=== PATIENT | male | born 1940 | race Caucasian/White ===

== ENCOUNTER 2017-01-13 12:05 | Emergency (ER) | payer MEDICARE, OTHER | END 2017-01-13 14:56 | disposition home or self-care (01) | LOC: D.ER 12:05 | DX: S22.32XA Fracture of one rib, left side, initial encounter for closed fracture (principal); V89.2XXA Person injured in unspecified motor-vehicle accident, traffic, initial encounter; Y93.89 Activity, other specified; Y92.410 Unspecified street and highway as the place of occurrence of the external cause; R07.81 Pleurodynia ==

== ENCOUNTER 2018-05-25 09:22 | Inpatient (IN) | payer MEDICARE, OTHER ==
[~2018-05-25] VITALS: Ht 177.8 cm; Wt 106.6 kg
[2018-05-25] VITALS (8 sets, daily range): BP systolic 103–147; BP diastolic 40–66
[2018-05-25] MEDS ORDERED: CENTRUM MEN'S1 EACH PO (09:35)
[2018-05-25] MEDS ORDERED: CRESTOR5 MG PO (09:35)
[2018-05-25] MEDS ORDERED: FARXIGA5 MG PO (09:36)
[2018-05-25] MEDS ORDERED: LISINOPRIL2.5 MG PO (09:36)
[2018-05-25] MEDS ORDERED: LASIX20 MG PO (09:36)
[2018-05-25] MEDS ORDERED: FLOMAX0.4 MG PO (09:37)
[2018-05-25] MEDS ORDERED: METOPROLOL TART25 MG PO (09:37)
[2018-05-25] MEDS ORDERED: ESTER-C 500 MG1 TAB PO (09:38)
[2018-05-25 10:19] LABS: BASOPHILS 0.1 % (0-2); EOSINOPHILS 0.2 % (0-7); HEMOGLOBIN 14.8 g/dL (13.5-17.5); IMMATURE GRANULOCYTES 0.3 % (0-5); LYMPHOCYTES 2.5 % (15-50); MCHC 35.2 g/dL (31.0-37.0); MCV 90.9 fL (80.0-100.0); MEAN PLATELET VOLUME 10.7 fL (7.4-10.4); MONOCYTES 3.1 % (2-11); NEUTROPHILS 93.8 % (40-80); PLATELET COUNT 138 10x3/uL (130-400); RBC 4.62 10x6/uL (4.20-6.10); WBC 17.6 10x3/uL (4.8-10.8)
[2018-05-25 10:31] LABS: ALBUMIN 3.7 g/dL (3.4-5.0); ALKALINE PHOSPHATASE 70 U/L (46-116); ALT (SGPT) 26 U/L (10-68); BILIRUBIN - TOTAL 0.66 mg/dL (0.2-1.3); CALC OSMOLALITY 284 mosm/kg (275-300); CALCIUM 8.9 mg/dL (8.5-10.1); CARBON DIOXIDE 19.2 mmol/L (21.0-32.0); CHLORIDE - SERUM 105 mmol/L (98-107); CREATININE - SERUM 1.3 mg/dL (0.6-1.3); GLUCOSE 203 mg/dL (74-106); POTASSIUM - SERUM 3.8 mmol/L (3.5-5.1); PROTEIN - SERUM 7.1 g/dL (6.4-8.2); SODIUM 137 mmol/L (136-145); UREA NITROGEN 27 mg/dL (7-18); eGFR NON AFRICAN AMERICAN 56 mL/min (90-120)
[2018-05-25 10:42] LABS: APPEARANCE CLEAR (CLEAR); BACTERIA FEW /hpf (NONE SEEN); BILIRUBIN NEGATIVE (NEGATIVE); COLOR STRAW (YELLOW); EPITHELIAL CELLS RARE /hpf (0-5); GLUCOSE 1000 mg/dL (NEGATIVE); KETONE NEGATIVE (NEGATIVE); MUCUS <1+ /lpf (NONE SEEN); NITRITE NEGATIVE (NEGATIVE); PROTEIN TRACE mg/dL (NEGATIVE); RED CELLS - URINE OCC /hpf (0-5); SPECIFIC GRAVITY 1.015 (1.005-1.020); UROBILINOGEN NORMAL (NORMAL)
[2018-05-25 10:43] LABS: AMYLASE - SERUM 32 U/L (25-115); CKMB 1.6 U/L (0.0-3.6); CREATINE KINASE 109 UL (21-232); LIPASE 132 U/L (73-393); TROPONIN-I < 0.017 ng/mL (0.000-0.060)
[2018-05-26] VITALS (7 sets, daily range): BP systolic 98–154; BP diastolic 52–71; Ht 177.8 cm; Wt 106.6 kg
[2018-05-26 06:39] LABS: BASOPHILS 0.1 % (0-2); EOSINOPHILS 0 % (0-7); HEMATOCRIT 41.6 % (42.0-54.0); HEMOGLOBIN 14.4 g/dL (13.5-17.5); IMMATURE GRANULOCYTES 0.2 % (0-5); LYMPHOCYTES 4.1 % (15-50); MCH 31.4 pg (26.0-34.0); MCHC 34.6 g/dL (31.0-37.0); MCV 90.8 fL (80.0-100.0); MEAN PLATELET VOLUME 10.7 fL (7.4-10.4); MONOCYTES 5.1 % (2-11); NEUTROPHILS 90.5 % (40-80); PLATELET COUNT 130 10x3/uL (130-400); RBC 4.58 10x6/uL (4.20-6.10); RDW 14.4 % (11.5-14.5); WBC 16.6 10x3/uL (4.8-10.8)
[2018-05-26 07:05] LABS: INR 1.2 (0.85-1.17); PROTIME 14.8 SECONDS (11.6-15.0)
[2018-05-26 07:31] LABS: BILIRUBIN - TOTAL 0.56 mg/dL (0.2-1.3); CALCIUM 8.6 mg/dL (8.5-10.1); CHOL - HDL RATIO 3.6 ratio (2.3-4.9); CREATININE - SERUM 1.3 mg/dL (0.6-1.3); LDL-HDL RATIO 1.2 ratio (1.5-3.5); PROTEIN - SERUM 6.5 g/dL (6.4-8.2)
[2018-05-26 07:33] LABS: ANION GAP 14.3 mmol/L (8-16); CARBON DIOXIDE 24.7 mmol/L (21.0-32.0)
[2018-05-27 04:42] VITALS: BP 147/70
[2018-05-27 04:49] LABS: BASOPHILS 0.1 % (0-2); EOSINOPHILS 1.8 % (0-7); HEMATOCRIT 41.7 % (42.0-54.0); HEMOGLOBIN 14.3 g/dL (13.5-17.5); IMMATURE GRANULOCYTES 0.2 % (0-5); LYMPHOCYTES 8.4 % (15-50); MCH 31.8 pg (26.0-34.0); MCHC 34.3 g/dL (31.0-37.0); MEAN PLATELET VOLUME 10.7 fL (7.4-10.4); NEUTROPHILS 82.5 % (40-80); PLATELET COUNT 122 10x3/uL (130-400); RBC 4.49 10x6/uL (4.20-6.10); RDW 14.6 % (11.5-14.5); WBC 10.7 10x3/uL (4.8-10.8)
[2018-05-27 04:50] LABS: MCV 92.9 fL (80.0-100.0)
[2018-05-27 05:28] LABS: ALBUMIN 2.6 g/dL (3.4-5.0); BILIRUBIN - TOTAL 0.25 mg/dL (0.2-1.3); CREATININE - SERUM 1.1 mg/dL (0.6-1.3); POTASSIUM - SERUM 3.8 mmol/L (3.5-5.1); PROTEIN - SERUM 5.1 g/dL (6.4-8.2)
[2018-05-27 05:31] LABS: ANION GAP 22.6 mmol/L (8-16); CARBON DIOXIDE 15.2 mmol/L (21.0-32.0)
[2018-05-27] MEDS ORDERED: FLORAJEN3 CAPS460 MG PO (06:57)
[2018-05-27] MEDS ORDERED: PEPCID20 MG PO (06:58)
[2018-05-27] MEDS ORDERED: FLAGYL500 MG PO (06:59)
[2018-05-27] MEDS ORDERED: LEVAQUIN750 MG PO (06:59)
[2018-05-27 07:12] VITALS: BP 162/74
== END 2018-05-27 09:50 | disposition home or self-care (01) | DRG 392 ==
LOC: D.ER 09:22 → D.EDHOLD 12:54 → D.M3 12:54
PROVIDERS: Family Medicine; Internal Medicine Gastroenterology
DX: A09 Infectious gastroenteritis and colitis, unspecified (principal); K80.20 Calculus of gallbladder without cholecystitis without obstruction; I10 Essential (primary) hypertension; E11.9 Type 2 diabetes mellitus without complications

== ENCOUNTER → 2018-05-28 15:06 | Outpatient (CLI) | payer MEDICARE, OTHER ==
[2018-05-26 07:31] VITALS: BMI 33.7
[~2018-05-28 15:06] MED LIST: CENTRUM MEN'S1 EACH PO; CRESTOR5 MG PO; ESTER-C 500 MG1 TAB PO; FARXIGA5 MG PO; FLAGYL500 MG PO; FLOMAX0.4 MG PO; FLORAJEN3 CAPS460 MG PO; LASIX20 MG PO; LEVAQUIN750 MG PO; LISINOPRIL2.5 MG PO; METOPROLOL TART25 MG PO; PEPCID20 MG PO
== END | disposition home or self-care (01) ==
LOC: D.US 15:06
DX: M79.661 Pain in right lower leg (principal)

== ENCOUNTER → 2018-06-22 12:43 | Outpatient (CLI) | payer MEDICARE, OTHER ==
[2018-05-26 07:31] VITALS: BMI 33.7
== END | disposition home or self-care (01) ==
LOC: D.MRI 12:30
DX: L03.031 Cellulitis of right toe (principal)

== ENCOUNTER → 2019-06-13 12:19 | Outpatient (CLI) | payer MEDICARE, OTHER ==
[2018-05-26 07:31] VITALS: BMI 33.7
[2019-06-21 15:09] LABS: OVA + PARASITE EXAM Final report (())
== END | disposition home or self-care (01) ==
LOC: D.LAB 09:12
PROVIDERS: ATTEND Family Medicine
DX: R19.7 Diarrhea, unspecified (principal)

== ENCOUNTER → 2019-06-17 08:50 | Outpatient (CLI) | payer MEDICARE, OTHER ==
[2018-05-26 07:31] VITALS: BMI 33.7
== END | disposition home or self-care (01) ==
LOC: D.CT 08:50
PROVIDERS: ATTEND Family Medicine
DX: K52.3 Indeterminate colitis (principal)

== ENCOUNTER → 2019-06-29 18:59 | Outpatient (CLI) | payer MEDICARE, OTHER ==
[2018-05-26 07:31] VITALS: BMI 33.7
== END | disposition home or self-care (01) ==
LOC: D.LABREF 18:59
PROVIDERS: ATTEND Surgery
DX: R19.7 Diarrhea, unspecified (principal)

== ENCOUNTER → 2019-07-05 15:06 | Outpatient (CLI) | payer MEDICARE, OTHER ==
[2018-05-26 07:31] VITALS: BMI 33.7
[2019-07-05 16:26] LABS: BASOPHILS 0.3 % (0-2); EOSINOPHILS 1.4 % (0-7); HEMATOCRIT 44.5 % (42.0-54.0); IMMATURE GRANULOCYTES 0.5 % (0-5); LYMPHOCYTES 18.4 % (15-50); MCH 31.6 pg (26.0-34.0); MCV 87.8 fL (80.0-100.0); MEAN PLATELET VOLUME 10.9 fL (7.4-10.4); MONOCYTES 9.4 % (2-11); RBC 5.07 10x6/uL (4.20-6.10); RDW 13.8 % (11.5-14.5); WBC 14.5 10x3/uL (4.8-10.8)
[2019-07-05 16:28] LABS: PLATELET COUNT 249 10x3/uL (130-400)
[2019-07-05 16:47] LABS: ALKALINE PHOSPHATASE 67 U/L (46-116); BILIRUBIN - TOTAL 0.44 mg/dL (0.2-1.3); CARBON DIOXIDE 24.8 mmol/L (21.0-32.0); CHLORIDE - SERUM 101 mmol/L (98-107); POTASSIUM - SERUM 4.5 mmol/L (3.5-5.1); PROTEIN - SERUM 6.6 g/dL (6.4-8.2); SODIUM 137 mmol/L (136-145)
[2019-07-05 16:52] LABS: ALT (SGPT) 3 U/L (10-68)
== END | disposition home or self-care (01) ==
LOC: D.LAB 15:06
PROVIDERS: ATTEND Internal Medicine Gastroenterology
DX: A04.72 Enterocolitis due to Clostridium difficile, not specified as recurrent (principal); R63.4 Abnormal weight loss

== ENCOUNTER → 2019-08-15 12:10 | Outpatient (CLI) | payer MEDICARE, OTHER ==
[2018-05-26 07:31] VITALS: BMI 33.7
== END | disposition home or self-care (01) ==
LOC: D.LAB 12:10
PROVIDERS: ATTEND Family Medicine
DX: R19.7 Diarrhea, unspecified (principal)

== ENCOUNTER → 2019-08-23 09:18 | Outpatient (CLI) | payer MEDICARE, OTHER ==
[2018-05-26 07:31] VITALS: BMI 33.7
== END | disposition home or self-care (01) ==
LOC: D.HCCECHO 09:18
PROVIDERS: ATTEND Internal Medicine Cardiovascular Disease
DX: I25.10 Atherosclerotic heart disease of native coronary artery without angina pectoris (principal)

== ENCOUNTER → 2019-12-08 09:53 | Outpatient (CLI) | payer MEDICARE, OTHER ==
[2018-05-26 07:31] VITALS: BMI 33.7
[2019-12-08 10:56] LABS: ALBUMIN 4.1 g/dL (3.4-5.0); BILIRUBIN - DIRECT 0.11 mg/dL (0.00-0.30); BILIRUBIN - INDIRECT 0.29 mg/dL (0.00-1.00); BILIRUBIN - TOTAL 0.4 mg/dL (0.2-1.3); PROTEIN - SERUM 8.3 g/dL (6.4-8.2)
== END | disposition home or self-care (01) ==
LOC: D.LAB 09:45 → D.US 10:00
PROVIDERS: ATTEND Internal Medicine Gastroenterology
DX: K76.0 Fatty (change of) liver, not elsewhere classified (principal)

== ENCOUNTER 2020-03-28 21:48 | Emergency (ER) | payer MEDICARE, OTHER ==
[~2020-03-28] VITALS: Ht 177.8 cm; Wt 99.1 kg
[2020-03-28 22:24] VITALS: Ht 177.8 cm; Wt 99.1 kg
[2020-03-28] MEDS ORDERED: SYNTHROID25 MCG PO (22:30)
[2020-03-28] MEDS ORDERED: TRESIBA FL100 UNIT/1 SC ×2 (22:31→22:32)
[2020-03-28] MEDS ORDERED: OZEMPIC (22:31)
[2020-03-28 23:00] LABS: HEMATOCRIT 42.9 % (42.0-54.0); HEMOGLOBIN 14.7 g/dL (13.5-17.5); LYMPHOCYTES 11.6 % (15-50); MCH 31.3 pg (26.0-34.0); MCHC 34.3 g/dL (31.0-37.0); MCV 91.3 fL (80.0-100.0); MEAN PLATELET VOLUME 10.1 fL (7.4-10.4); NEUTROPHILS 81.8 % (40-80); PLATELET COUNT 243 10x3/uL (130-400); RDW 13.7 % (11.5-14.5); WBC 15.1 10x3/uL (4.8-10.8)
[2020-03-28 23:08] LABS: ANION GAP 17.8 mmol/L (8-16); APTT 31.5 SECONDS (22.8-39.4); CALCIUM 9.3 mg/dL (8.5-10.1); CARBON DIOXIDE 21.5 mmol/L (21.0-32.0); CREATININE - SERUM 1.7 mg/dL (0.6-1.3); INR 1.13 (0.85-1.17); POTASSIUM - SERUM 4.3 mmol/L (3.5-5.1); PROTIME 14.4 SECONDS (11.6-15.0)
[2020-03-28 23:14] LABS: ALBUMIN 3.8 g/dL (3.4-5.0); BILIRUBIN - TOTAL 0.66 mg/dL (0.2-1.3); PROTEIN - SERUM 8.3 g/dL (6.4-8.2)
[2020-03-29] MEDS ORDERED: PROTONIX40 MG PO (00:04)
[2020-03-29 00:12] LABS: BILIRUBIN NEGATIVE (NEGATIVE); GLUCOSE 500 mg/dL (NEGATIVE); KETONE SMALL mg/dL (NEGATIVE); NITRITE NEGATIVE (NEGATIVE); UROBILINOGEN NORMAL (NORMAL)
[2020-03-29 01:25] VITALS: BP 127/78
== END 2020-03-29 01:25 | disposition home or self-care (01) ==
LOC: D.ER 21:48
PROVIDERS: Family Medicine
DX: K92.1 Melena (principal); E86.0 Dehydration; E11.9 Type 2 diabetes mellitus without complications; I11.0 Hypertensive heart disease with heart failure; I50.9 Heart failure, unspecified; Z95.1 Presence of aortocoronary bypass graft; Z79.4 Long term (current) use of insulin

== ENCOUNTER → 2020-04-02 15:58 | Outpatient (CLI) | payer MEDICARE, OTHER ==
[2020-03-28 22:24] VITALS: BMI 31.3
[~2020-04-02 15:58] MED LIST changes: +OZEMPIC; +PROTONIX40 MG PO; +SYNTHROID25 MCG PO; +TRESIBA FL100 UNIT/1 SC
== END | disposition home or self-care (01) ==
LOC: D.LAB 15:58
PROVIDERS: ATTEND Family Medicine
DX: R19.7 Diarrhea, unspecified (principal)

== ENCOUNTER → 2020-06-27 09:14 | Outpatient (CLI) | payer MEDICARE, OTHER ==
[2020-03-28 22:24] VITALS: BMI 31.3
[2020-06-27 10:34] LABS: ALBUMIN 3.6 g/dL (3.4-5.0); BILIRUBIN - DIRECT 0.05 mg/dL (0.00-0.30); BILIRUBIN - INDIRECT 0.43 mg/dL (0.00-1.00); BILIRUBIN - TOTAL 0.48 mg/dL (0.2-1.3); PROTEIN - SERUM 7.8 g/dL (6.4-8.2)
== END | disposition home or self-care (01) ==
LOC: D.US 09:14
PROVIDERS: ATTEND Internal Medicine Gastroenterology
DX: K76.0 Fatty (change of) liver, not elsewhere classified (principal)

== ENCOUNTER → 2020-12-25 08:59 | Outpatient (CLI) | payer MEDICARE, OTHER ==
[2020-03-28 22:24] VITALS: BMI 31.3
[2020-12-25 09:29] LABS: ALBUMIN 3.7 g/dL (3.4-5.0); BILIRUBIN - DIRECT 0.06 mg/dL (0.00-0.30); BILIRUBIN - INDIRECT 0.21 mg/dL (0.00-1.00); BILIRUBIN - TOTAL 0.27 mg/dL (0.2-1.3); PROTEIN - SERUM 7.4 g/dL (6.4-8.2)
== END | disposition home or self-care (01) ==
LOC: D.US 08:59
PROVIDERS: ATTEND Internal Medicine Gastroenterology
DX: K76.0 Fatty (change of) liver, not elsewhere classified (principal)

== ENCOUNTER → 2021-01-09 13:00 | Outpatient (CLI) | payer MEDICARE, OTHER ==
[2020-03-28 22:24] VITALS: BMI 31.3
== END | disposition home or self-care (01) ==
LOC: D.HCCECHO 13:00
PROVIDERS: ATTEND Internal Medicine Cardiovascular Disease
DX: I25.10 Atherosclerotic heart disease of native coronary artery without angina pectoris (principal)

== ENCOUNTER 2021-03-05 07:34 | Day surgery (SDC) | payer MEDICARE, OTHER ==
[~2021-03-05] VITALS: Ht 175.3 cm; Wt 98.9 kg
--- NOTE | ~2021-03-05 | OP ---
PATIENT NAME: GURPREET MENDEZ SR MEDICAL RECORD: [id number] :38 LOCATION:D.OPS ADMISSION DATE: SURGEON: AKBAR DODSON MD DATE OF OPERATION: 03/05/2021 PREOPERATIVE DIAGNOSES: 1. Gallstones. 2. Coronary artery disease. 3. Diabetes mellitus. POSTOPERATIVE DIAGNOSES: 1. Gallstones. 2. Coronary artery disease. 3. Diabetes mellitus. PROCEDURE: Laparoscopic cholecystectomy. SURGEON: Akbar Dodson MD DESCRIPTION OF PROCEDURE: The patient's abdomen was prepped and draped in sterile fashion. A cutdown was made on the superior aspect of the umbilicus, 0 Vicryls were placed in the fascia bilaterally and the fascia was incised with a 15-blade. I then bluntly entered the peritoneal cavity and placed a 12-mm Roc port. Under direct visualization, a 5-mm trocar was placed in the epigastrium and two more 5-mm trocars were placed in the right subcostal region. The gallbladder was grasped and elevated. There were no signs of any inflammatory changes. The cystic artery and cystic duct were dissected free and these were clipped proximally and distally and ligated in standard fashion. The gallbladder was taken off the liver bed using electrocautery and placed into the right upper quadrant. Any bleeding from the liver bed was then treated with electrocautery. The ports and insufflation were then removed and the gallbladder was taken out through the umbilicus. The umbilical fascia was closed with interrupted 0 Vicryls times 3. The wounds were irrigated out with normal saline and infused with 10 mL of 0.25% Marcaine with epinephrine. The skin incisions were all closed with subcutaneous 5-0 Monocryl and dressed appropriately. COMPLICATIONS: None. CONDITION: Stable. ANESTHESIA: General endotracheal and local. BLOOD LOSS: Minimal. TRANSINT:[id number] Voice Confirmation ID: [id number] DOCUMENT ID: [id number] OPERATIVE REPORT [id number] MATGURPREET DURBIN SR AKBAR DODSON MD CC: YEIMY CHISHOLM [id number] DICTATION DATE: 03/05/21 1026 [facility] COORDINATOR: 03/05/21 1335 [facility] 03/05/21 [id number] [place] [address]
[~2021-03-05 07:34] MED LIST changes: +METOPROLOL TART50 MG PO; +ZYRTEC10 MG PO
[2021-03-05 07:54] LABS: BASOPHILS 0.5 % (0-2); EOSINOPHILS 11.9 % (0-7); HEMATOCRIT 40.1 % (42.0-54.0); HEMOGLOBIN 13.5 g/dL (13.5-17.5); LYMPHOCYTES 30.1 % (15-50); MCH 31.6 pg (26.0-34.0); MCHC 33.6 g/dL (31.0-37.0); MCV 94.1 fL (80.0-100.0); MEAN PLATELET VOLUME 8.5 fL (7.4-10.4); MONOCYTES 6.9 % (2-11); NEUTROPHILS 50.6 % (40-80); PLATELET COUNT 216 10x3/uL (130-400); RBC 4.27 10x6/uL (4.20-6.10); RDW 14.3 % (11.5-14.5); WBC 9.5 10x3/uL (4.8-10.8)
[2021-03-05 08:10] LABS: CARBON DIOXIDE 22.7 mmol/L (21.0-32.0); CREATININE - SERUM 1.7 mg/dL (0.6-1.3); POTASSIUM - SERUM 3.7 mmol/L (3.5-5.1)
[2021-03-05 08:27] VITALS: BP 127/55; Ht 175.3 cm; Wt 98.9 kg
[2021-03-05 08:44] LABS: APTT 25.9 SECONDS (22.8-39.4); INR 1.15 (0.85-1.17); PROTIME 13.6 SECONDS (11.6-15.0)
[2021-03-05] MEDS ORDERED: HYDROCODON-ACE1 EA10 PO (10:23)
--- NOTE | 2021-03-05 10:30 | NUR ---
[facility] SITES X4 CDI
--- NOTE | 2021-03-05 10:35 | NUR ---
PT DENIES PAIN AT THIS TIME. STATES HE IS JUST SLEEPY
== END 2021-03-05 12:25 | disposition home or self-care (01) ==
LOC: D.OPS 07:34
PROVIDERS: Anesthesiology; ATTEND Surgery
DX: K80.20 Calculus of gallbladder without cholecystitis without obstruction (principal); I25.10 Atherosclerotic heart disease of native coronary artery without angina pectoris; E11.9 Type 2 diabetes mellitus without complications